=== PATIENT | female | born 1980 | race African-American/Black ===

== ENCOUNTER 2021-08-12 12:16 | Emergency (ER) | payer OTHER ==
[~2021-08-12] VITALS: Ht 157.5 cm; Wt 78.0 kg
[2021-08-12] MEDS ORDERED: SYNTHROID75 MCG PO (12:51)
== END 2021-08-12 16:04 | disposition home or self-care (01) ==
LOC: ER 12:16
DX: L02.211 Cutaneous abscess of abdominal wall (principal); Z88.5 Allergy status to narcotic agent; Z88.6 Allergy status to analgesic agent; Z91.013 Allergy to seafood

== ENCOUNTER 2021-08-22 11:09 | Inpatient (IN) | payer OTHER ==
[~2021-08-22] VITALS: Ht 157.5 cm; Wt 77.1 kg
[~2021-08-22 11:09] MED LIST: SYNTHROID75 MCG PO
== END 2021-08-28 00:09 | disposition home or self-care (01) | DRG 603 ==
LOC: ER 11:09 → SURH 18:36 → MEDJ 20:21 → SURH 20:31 → SURG 08-23 15:14
PROVIDERS: ADMIT Internal Medicine; ATTEND Internal Medicine
PROC: BW24ZZZ Computerized Tomography (CT Scan) of Chest and Abdomen (ICD-10-PCS; principal; 2021-08-22)
DX: L02.211 Cutaneous abscess of abdominal wall (principal); L03.311 Cellulitis of abdominal wall; B96.89 Other specified bacterial agents as the cause of diseases classified elsewhere; Z20.822 Contact with and (suspected) exposure to COVID-19; E03.8 Other specified hypothyroidism; Z87.09 Personal history of other diseases of the respiratory system; D64.9 Anemia, unspecified